=== PATIENT | male | born 1985 | race Caucasian/White ===

== ENCOUNTER 2023-03-22 04:14 | Emergency (ER) | payer BC, OTHER ==
[2023-03-22] MEDS ORDERED: Promethazine 25 MG/ML SDV IM ONE (05:08)
[2023-03-22] MEDS ORDERED: HYDROmorphone 1 MG/ML Syringe IM ONE (05:08)
== END 2023-03-22 05:55 | disposition home or self-care (01) ==
LOC: JD.ED 04:14
DX: M54.41 Lumbago with sciatica, right side (principal)
CPT/HCPCS: 96372; 99283; J1170; J2550

== ENCOUNTER 2024-05-18 07:32 | Emergency (ER) | payer BC ==
[2024-05-18] MEDS: HYDROmorphone 1 MG/ML Syringe IVPUSH ONE (08:30)
[2024-05-18] MEDS: Metoclopramide 10 MG/2 ML SDV IVPUSH ONE (08:32)
[2024-05-18] MEDS: Dextrose 5%-0.9% NaCl 1,000 ML IV SCH (08:36)
== END 2024-05-18 11:35 | disposition home or self-care (01) ==
LOC: JD.ED 07:32
DX: N23 Unspecified renal colic (principal)
CPT/HCPCS: 74176; 96361; 96374; 96375; 99284; J1170; J2765; J7042

== ENCOUNTER 2024-08-23 05:15 | Emergency (ER) | payer BC ==
[2024-08-23] MEDS ORDERED: Naloxone 0.4 MG/ML SDV IVPUSH PRN (05:37)
[2024-08-23] MEDS: Sodium Chloride 0.9% 1,000 ML IV ONE (05:51)
[2024-08-23] MEDS: Ondansetron 4 MG/2 ML SDV IVPUSH ONE (05:52)
[2024-08-23] MEDS: Morphine 4 MG/ML Syringe IVPUSH ONE (05:52)
== END 2024-08-23 12:52 | disposition home or self-care (01) ==
LOC: JD.ED 05:15
DX: M51.26 Other intervertebral disc displacement, lumbar region (principal); Z79.51 Long term (current) use of inhaled steroids; Z79.899 Other long term (current) drug therapy
CPT/HCPCS: 72131; 72148; 96374; 96375; 99283; J2270; J2405; J7030